=== PATIENT | female | born 1995 | race Caucasian/White ===

== ENCOUNTER → 2018-09-19 | Outpatient (CLI) | payer OTHER ==
[2018-09-19 11:39] LABS: BASOPHILS # (AUTO) 0.06 x10^3/uL (0-0.1); BASOPHILS % (AUTO) 1 % (0-1); EOSINOPHILS # (AUTO) 0.05 x10^3/uL (0-0.4); EOSINOPHILS % (AUTO) 1 % (1-7); LYMPHOCYTES # (AUTO) 2.19 x10^3/uL (1-3.4); LYMPHOCYTES % (AUTO) 34 % (22-44); MD NO; MEAN CORPUSCULAR HEMOGLOBIN 32.9 pg (27.0-34.8); MEAN CORPUSCULAR HGB CONC 34.6 g/dL (32.4-35.8); MEAN CORPUSCULAR VOLUME 95.3 fL (80-100); MEAN PLATELET VOLUME 8.2 fL (7.4-10.4); MONOCYTES # (AUTO) 0.51 x10^3/uL (0.2-0.8); MONOCYTES % (AUTO) 8 % (2-9); NEUTROPHILS # (AUTO) 3.66 x10^3/uL (1.8-6.8); NEUTROPHILS % (AUTO) 57 % (42-75); PLATELET COUNT 272 x10^3/uL (130-400); RED BLOOD COUNT 4.42 x10^6/uL (3.82-5.3); RED CELL DISTRIBUTION WIDTH 13.1 % (9.6-15.2)
[2018-09-19 12:38] LABS: ALBUMIN 4.2 g/dL (3.4-5.0); ANION GAP 6 mmol/L (5-15); CALCIUM 9.1 mg/dL (8.5-10.1); CHLORIDE 108 mmol/L (98-107); CHOLESTEROL, TOTAL 160 mg/dL (140-239); TRIGLYCERIDES 59 mg/dL (50-200); VLDL CHOLESTEROL 12 mg/dL (0-25)
[2018-09-19 13:05] LABS: % IRON SATURATION 26 % (20-55); ALANINE AMINOTRANSFERASE 21 U/L (12-78); ALKALINE PHOSPHATASE 53 U/L (45-117); BILIRUBIN,TOTAL 0.5 mg/dL (0.2-1.0); CHOL/HDL RATIO 1.9; CREATININE 0.74 mg/dL (0.55-1.02); FOLATE LEVEL 18.4 ng/mL (3.1-17.5); FREE T4 (FREE THYROXINE) 0.91 ng/dL (0.76-1.46); HDL CHOL % 53 % (28-40); HDL CHOLESTEROL (DIRECT) 85 mg/dL (40-60); IRON LEVEL 104 mcg/dL (50-170); LDL CHOLESTEROL,CALCULATED 63 mg/dL (54-169); LDL/HDL RATIO 0.7 (0.5-3.0); TOTAL IRON BINDING CAPACITY 394 mcg/dL (250-450); TOTAL PROTEIN 7.4 g/dL (6.4-8.2)
== END | disposition home or self-care (01) ==
LOC: LAB 11:26
PROVIDERS: ATTEND Nurse Practitioner Family
DX: N94.6 Dysmenorrhea, unspecified (principal); R53.83 Other fatigue; Z86.2 Personal history of diseases of the blood and blood-forming organs and certain disorders involving the immune mechanism
CPT/HCPCS: 36415; 80053; 80061; 82306; 82607; 82728; 82746; 83540; 83550; 84439; 84443; 84481; 85025

== ENCOUNTER 2018-12-08 06:48 | Emergency (ER) | payer OTHER ==
[~2018-12-08] VITALS: Ht 177.8 cm; Wt 69.9 kg
[2018-12-08 06:50] VITALS: BP 138/93
--- NOTE | 2018-12-08 07:00 | NUR ---
PT AMBULATORY TO ROOM 17 W/ C/O L UPPER THIGH REDNESS, HEAT, FIRMNESS W/ BLANCHING AND TWO NOTICABLE BUG BITES. PT STATES SHE WENT TO [facility] [place] [address] [facility] 2 DAYS AGO AND STATES SHE NOTICED BITES THEN. PT RESTING ON GURNEY. NADN. WARM BLANKET PROVIDED.
--- NOTE | 2018-12-08 07:10 | NUR ---
EDPA AT BEDSIDE.
[2018-12-08] MEDS ORDERED: CEPHALEXIN 500 MG CAPSULE ONE ×2 (07:16→07:43)
[2018-12-08] MEDS ORDERED: SULFAMETH./TRIMETHOPRIM DS 800MG/160MG TABLET ONE (07:16)
[2018-12-08] MEDS ORDERED: CEPHALEXIN 500 MG CAPSULE PO ONE ×2 (07:30→08:00)
[2018-12-08] MEDS ORDERED: SULFAMETH./TRIMETHOPRIM DS 800MG/160MG TABLET PO ONE (07:30)
--- NOTE | 2018-12-08 07:46 | NUR ---
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 ERP NOTIFIED. PER ERP OKAY FOR PT TO GET 1GM OF KEFLEX IN ED AND THEN START TAKING MEDICATION AGAIN PER RX. PT MEDICATED W/ 2 500 MG KEFLEX TABS.
== END 2018-12-08 07:48 | disposition home or self-care (01) ==
LOC: ED 07:07
DX: S70.362A Insect bite (nonvenomous), left thigh, initial encounter (principal); W57.XXXA Bitten or stung by nonvenomous insect and other nonvenomous arthropods, initial encounter; Y93.89 Activity, other specified; Y92.89 Other specified places as the place of occurrence of the external cause; Y99.8 Other external cause status
CPT/HCPCS: 99284

== ENCOUNTER 2019-11-09 08:12 | Emergency (ER) | payer OTHER ==
[~2019-11-09] VITALS: Ht 170.2 cm; Wt 57.0 kg
[2019-11-09] MEDS ORDERED: LORazepam 1MG TABLET ONE (08:25)
[2019-11-09] MEDS ORDERED: LORazepam 1MG TABLET PO ONE (08:30)
[2019-11-09 09:00] LABS: BASOPHILS # (AUTO) 0.03 x10^3/uL (0-0.1); BASOPHILS % (AUTO) 0 % (0-1); EOSINOPHILS % (AUTO) 1 % (1-7); LYMPHOCYTES # (AUTO) 1.14 x10^3/uL (1-3.4); LYMPHOCYTES % (AUTO) 13 % (22-44); MD NO; MEAN CORPUSCULAR HGB CONC 33.8 g/dL (32.4-35.8); MEAN CORPUSCULAR VOLUME 97.5 fL (80-100); MEAN PLATELET VOLUME 7.9 fL (7.4-10.4); MONOCYTES # (AUTO) 0.56 x10^3/uL (0.2-0.8); MONOCYTES % (AUTO) 6 % (2-9); NEUTROPHILS # (AUTO) 7.16 x10^3/uL (1.8-6.8); NEUTROPHILS % (AUTO) 80 % (42-75); PLATELET COUNT 274 x10^3/uL (130-400); RED BLOOD COUNT 4.18 x10^6/uL (3.82-5.3)
--- NOTE | 2019-11-09 09:10 | NUR ---
patient resting comfortably in [facility]. awaiting lab results. call light with in reach. will continue to monitor.
[2019-11-09 09:12] LABS: T4 (THYROXINE) 9.6 mcg/dL (4.8-13.9)
[2019-11-09 10:32] VITALS: BP 128/78
== END 2019-11-09 10:36 | disposition home or self-care (01) ==
LOC: ED 08:42
DX: R00.2 Palpitations (principal); R00.0 Tachycardia, unspecified
CPT/HCPCS: 36415; 84436; 84443; 85025; 93005; 99285

== ENCOUNTER 2020-03-26 10:27 | Outpatient (CLI) | payer OTHER | END 2020-03-26 23:59 | disposition home or self-care (01) | LOC: LAB 10:27 | PROVIDERS: ATTEND Nurse Practitioner Family | DX: Z20.2 Contact with and (suspected) exposure to infections with a predominantly sexual mode of transmission (principal) | CPT/HCPCS: 36415; 87340; 87806; G0475 ==